=== PATIENT | female | born 1980 | race Caucasian/White ===

== ENCOUNTER 2021-07-03 13:04 | Emergency (ER) | payer MEDICAID ==
[~2021-07-03] VITALS: Ht 165.1 cm; Wt 90.7 kg
[2021-07-03 13:37] VITALS: BP 103/60
[2021-07-03 14:42] VITALS: BP 115/72
--- NOTE | 2021-07-03 14:42 | NUR ---
Patient discharged with v/s stable. Written and verbal after care instructions given SEIZURES and explained. Patient verbalized understanding. Ambulatory with steady gait. All questions addressed prior to discharge. Advised to follow up with PMD.
== END 2021-07-03 14:42 | disposition home or self-care (01) ==
LOC: MED 13:04
DX: R56.9 Unspecified convulsions (principal); F11.93 Opioid use, unspecified with withdrawal
CPT/HCPCS: 99283